=== PATIENT | female | born 1985 | race Two or more races ===

== ENCOUNTER 2019-05-02 16:21 | Emergency (ER) | payer OTHER ==
[~2019-05-02] VITALS: Ht 172.7 cm; Wt 65.0 kg
[2019-05-02] MEDS ORDERED: LAMO100T PO (16:34)
[2019-05-02] MEDS ORDERED: SING10TA32 PO (16:34)
[2019-05-02] MEDS ORDERED: ZYRTTAB8 PO (16:34)
[2019-05-02] MEDS ORDERED: CAPSAICIN 0.025% CR 60 GM TOP STA (19:51)
[2019-05-02] MEDS ORDERED: CAPS0.022 TOP ×4 (21:09→21:25)
[2019-05-02 21:11] VITALS: BP 122/65
--- NOTE | 2019-05-02 21:54 | REPVR ---
EXAM: US Duplex Right Upper Extremity Veins, Limited EXAM DATE/TIME: 05/02/2019 8:26 PM CLINICAL HISTORY: 33 years old, female; Swelling (edema) of limb; Upper extremity, right; Additional info: Swelling, sudden onset pain, HX surgery chronic pain TECHNIQUE: Imaging protocol: Real-time Duplex ultrasound of the Right Upper Extremity with 2-D sánchez scale, color Doppler flow and spectral waveform analysis with image documentation. Limited exam focused on the right upper extremity veins. COMPARISON: No relevant prior studies available. FINDINGS: Right deep veins: Axillary and brachial veins are patent throughout without thrombus. Normal compressibility and/or augmentation response. Visualized internal jugular and subclavian veins are patent. Right superficial veins: The right cephalic vein is small in caliber. Flow is poorly visualized, which can be contributed by the small caliber of the vessel, although thrombosis cannot be excluded. The technologist indicated that the right basilic vein was also small in caliber, although images are not available for review. Soft tissues: Unremarkable. IMPRESSION: 1. No evidence of deep vein thrombosis involving the right upper extremity, as visualized. 2. The right cephalic vein is small in caliber. Flow is poorly visualized, which can be contributed by the small caliber of the vessel, although thrombosis cannot be excluded. 3. Additional findings described above. Electronically signed by: Petar Blake On 05/02/2019 21:54:18 PM
== END 2019-05-02 21:27 | disposition home or self-care (01) ==
LOC: M ED 16:21
DX: G89.29 Other chronic pain (principal); M25.531 Pain in right wrist; Z79.899 Other long term (current) drug therapy; Z88.6 Allergy status to analgesic agent

== ENCOUNTER 2019-08-08 18:01 | Emergency (ER) | payer OTHER ==
[~2019-08-08] VITALS: Ht 172.7 cm; Wt 65.5 kg
[2019-08-08 18:01] VITALS: BP 123/71
[~2019-08-08 18:01] MED LIST: CAPS0.022 TOP; LAMO100T PO; SING10TA32 PO; ZYRTTAB8 PO
[2019-08-08] MEDS ORDERED: AMOXICILLIN 500 MG CAP PO STA (18:54)
[2019-08-08] MEDS ORDERED: ALBUTEROL 90 MCG/ACT 8GM HFA INHALER INH STA (18:56)
[2019-08-08] MEDS ORDERED: AMOX500C PO ×2 (19:03→19:09)
--- NOTE | 2019-08-08 19:21 | REP ---
REASON: Cough and dyspnea. PRIORS: None. FINDINGS: The superior mediastinal structures are midline. The cardiac silhouette is unremarkable in size, shape, and position. The diaphragmatic surfaces of the lungs are regular, and the costophrenic angles are clear. The pulmonary kunz are clear. The imaged osseous structures are intact. IMPRESSION: There is no acute cardiopulmonary disease. Electronically Signed by Enio Galarza DO 08/08/2019 07:30 P
== END 2019-08-08 19:17 | disposition home or self-care (01) ==
LOC: M ED 18:01
DX: J18.9 Pneumonia, unspecified organism (principal); Z88.6 Allergy status to analgesic agent

== ENCOUNTER → 2019-12-08 | Outpatient (CLI) | payer OTHER ==
[~2019-12-08] MED LIST changes: +AMOX500C PO; -LAMO100T PO; +LAMO100T3 PO
--- NOTE | 2019-12-08 12:00 | REP ---
ULTRASOUND LEFT BREAST: Real-time sonographic evaluation of the left breast performed for a palpable lump in the retroareolar region at 12 o'clock. At that location there is an oval cyst with a thin septation measuring 1.6 x 0.5 x 1.6 cm. No other cystic or solid nodule is seen in this region. IMPRESSION: ACR 2 benign. At the site of the palpable lump in the left retroareolar region at 12 o'clock, there is an oval benign cyst with a thin septation with a maximum diameter of 1.6 cm.
== END ==
LOC: M WHC 10:25
PROVIDERS: ATTEND Family Medicine
DX: N60.02 Solitary cyst of left breast (principal)

== ENCOUNTER → 2019-12-27 | Outpatient (CLI) | payer OTHER | LOC: M LABSMTC 10:29 | PROVIDERS: ATTEND Family Medicine | DX: Z11.59 Encounter for screening for other viral diseases (principal); Z20.828 Contact with and (suspected) exposure to other viral communicable diseases ==

== ENCOUNTER 2020-05-28 09:08 | Emergency (ER) | payer OTHER ==
[~2020-05-28] VITALS: Ht 172.7 cm; Wt 69.3 kg
[2020-05-28] MEDS ORDERED: ONDANSETRON 4MG/2ML VIAL IV ONE (09:45)
[2020-05-28] MEDS ORDERED: NS 1,000 ML IV ONE (09:45)
[2020-05-28 10:55] LABS: BASO % 0.2 % (0.0-1.0); EOS # 0.1 10^3/uL (0.0-0.5); HEMATOCRIT 38.1 % (36.0-47.0); HEMOGLOBIN 11.9 g/dl (12.0-15.5); LYMPH # 0.4 10^3/uL (1.5-5.0); LYMPH % 8.2 % (24.0-44.0); MEAN CORPUSCULAR HEMOGLOBIN 30.1 pg (27.0-33.0); MEAN CORPUSCULAR HGB CONC 31.2 g/dl (32.0-36.5); MEAN CORPUSCULAR VOLUME 96.2 fl (80.0-96.0); MONO # 0.3 10^3/uL (0.0-0.8); MONO % 6.3 % (0.0-5.0); NEUTROPHILS # 4.4 10^3/uL (1.5-8.5); NEUTROPHILS % 83.5 % (36.0-66.0); PLATELET COUNT, AUTOMATED 253 10^3/uL (150-450); RED BLOOD COUNT 3.96 10^6/uL (4.00-5.40); WHITE BLOOD COUNT 5.2 10^3/uL (4.0-10.0)
[2020-05-28 11:08] LABS: ALBUMIN 3.3 GM/DL (3.2-5.2); ALT/SGPT 19 U/L (12-78); BILIRUBIN,DIRECT 0.1 MG/DL (0.0-0.2); BILIRUBIN,TOTAL 0.4 MG/DL (0.2-1.0); BLOOD UREA NITROGEN 5 MG/DL (7-18); CALCIUM LEVEL 8.5 MG/DL (8.5-10.1); CARBON DIOXIDE LEVEL 27 MEQ/L (21-32); CHLORIDE LEVEL 107 MEQ/L (98-107); CREATININE FOR GFR 0.67 MG/DL (0.55-1.30); GLOMERULAR FILTRATION RATE > 60.0 (>60); GLUCOSE, FASTING 96 MG/DL (70-100); LIPASE 56 U/L (73-393); POTASSIUM SERUM 3.5 MEQ/L (3.5-5.1); SODIUM LEVEL 140 MEQ/L (136-145); TOTAL PROTEIN 6.4 GM/DL (6.4-8.2)
[2020-05-28 11:09] LABS: HCG, SERUM QUALITATIVE NEGATIVE (NEGATIVE)
[2020-05-28] MEDS ORDERED: NS 500 ML IV ONE (12:15)
--- NOTE | 2020-05-28 12:20 | REPVR ---
PROCEDURE INFORMATION: Exam: XR Abdomen, 1 View Exam date and time: 05/28/2020 11:36 AM Age: 34 years old Clinical indication: Nausea and vomiting; Additional info: Diffuse abd pain, n/v TECHNIQUE: Imaging protocol: XR of the abdomen. Views: Frontal supine view of the abdomen. 1 View. COMPARISON: No relevant prior studies available. FINDINGS: Gastrointestinal tract: Prominent stool and mild bowel dilatation. Intraperitoneal space: Incomplete visualization of the superior most abdomen. Organs: Punctate calcifications overlying the renal fossa, suspicious for urolithiasis. CT or ultrasound can be performed for improved characterization if clinically indicated. Additional punctate pelvic calcification. Bones/joints: No acute osseous pathology. IMPRESSION: 1. Prominent stool and mild bowel dilatation. 2. Additional findings as described above. Electronically signed by: Hunter Montenegro On 05/28/2020 12:20:48 PM
[2020-05-28] MEDS ORDERED: ACETAMINOPHEN 500 MG TAB PO ONE (12:30)
[2020-05-28] MEDS ORDERED: ISOVUE-370 76% 100ML VIAL As Ordered ONE (13:06)
--- NOTE | 2020-05-28 14:02 | REPVR ---
PROCEDURE INFORMATION: Exam: CT Abdomen And Pelvis With Contrast Exam date and time: 05/28/2020 1:26 PM Age: 34 years old Clinical indication: Other: Gen abd pain rectal bleeding resolved TECHNIQUE: Imaging protocol: Computed tomography of the abdomen and pelvis with intravenous contrast. Radiation optimization: All CT scans at this facility use at least one of these dose optimization techniques: automated exposure control; mA and/or kV adjustment per patient size (includes targeted exams where dose is matched to clinical indication); or iterative reconstruction. Contrast material: ISOVUE 370; Contrast volume: 100 ml; Contrast route: INTRAVENOUS (IV); COMPARISON: CR Abdomen,Flat Plate KUB 05/28/2020 11:28 AM FINDINGS: Lungs: Trace dependent left basilar airspace disease. Liver: No focal hepatic mass. Gallbladder and bile ducts: No cholelithiasis or biliary ductal dilatation. Pancreas: No pancreatic mass or ductal dilatation. Spleen: No splenomegaly. 8 mm accessory spleen. Adrenals: Unremarkable adrenals. Kidneys and ureters: Normal renal morphology. No hydronephrosis. Stomach and bowel: Mild wall thickening in the nondistended stomach. No significant small bowel dilatation. Prominent stool and diverticula, without pericolonic inflammation. Appendix: Appendix not visualized. Intraperitoneal space: Trace free fluid in the cul-de-sac. Vasculature: Normal caliber of the abdominal aorta. Lymph nodes: Subcentimeter lymph nodes. Bladder: Nondistended bladder with mild wall thickening. Reproductive: Indwelling tampon. Follicular change in the ovaries. Bones/joints: No acute osseous pathology . IMPRESSION: 1. Mild wall thickening in the nondistended stomach. 2. Prominent stool and diverticula, without pericolonic inflammation. Electronically signed by: Hunter Montenegro On 05/28/2020 14:02:16 PM
[2020-05-28 14:07] VITALS: BP 108/59
[2020-05-28] MEDS ORDERED: GI COCKTAIL 50ML BTL(HYOSCYAMINE/MAALOX/LIDOCAINE VISCOUS)(1:3:1) PO ONE (14:15)
[2020-05-28] MEDS ORDERED: COLA100C5 PO (14:16)
[2020-05-28] MEDS ORDERED: MIRA3350 PO (14:16)
[2020-05-28] MEDS ORDERED: MAGNESIUM CITRATE 300 ML BTL PO ONE (14:30)
== END 2020-05-28 14:34 | disposition home or self-care (01) ==
LOC: M ED 09:08
DX: K29.70 Gastritis, unspecified, without bleeding (principal); K59.00 Constipation, unspecified; K27.9 Peptic ulcer, site unspecified, unspecified as acute or chronic, without hemorrhage or perforation; Z88.6 Allergy status to analgesic agent; Z79.899 Other long term (current) drug therapy
CPT/HCPCS: 36415; 74018; 74177; 80048; 80076; 81001; 83690; 84703; 85025; 96361; 96374; 99284; J2405; Q9967

== ENCOUNTER 2021-11-15 21:23 | Emergency (ER) | payer OTHER ==
[~2021-11-15] VITALS: Ht 172.7 cm; Wt 73.8 kg
[~2021-11-15 21:23] MED LIST changes: +COLA100C5 PO; +MIRA3350 PO
[2021-11-15 21:24] VITALS: BP 125/70
[2021-11-16] MEDS: ACETAMINOPHEN 500 MG TAB PO ONE (00:55)
== END 2021-11-16 01:14 | disposition home or self-care (01) ==
LOC: M ED 21:23
DX: S59.901A Unspecified injury of right elbow, initial encounter (principal); W00.9XXA Unspecified fall due to ice and snow, initial encounter; Y92.009 Unspecified place in unspecified non-institutional (private) residence as the place of occurrence of the external cause; Y93.89 Activity, other specified; Y99.8 Other external cause status; Z88.8 Allergy status to other drugs, medicaments and biological substances; Z98.890 Other specified postprocedural states